=== PATIENT | male | born 1985 | race Caucasian/White ===

== ENCOUNTER 2018-10-09 11:40 | Emergency (ER) | payer OTHER ==
[2018-10-09 11:47] VITALS: TEMP 98.2; BMI 29.5
[2018-10-09] MEDS ORDERED: SODIUM CHLORIDE 1,000 ML IV STA (12:48)
--- NOTE | 2018-10-09 13:20 | PDOC ---
*Physical Exam - Vital Signs Last Vital Signs Temp Pulse Resp BP Pulse Ox 98.2 F 111 H 18 156/114 H 99 10/09/18 11:42 10/09/18 11:42 10/09/18 11:42 10/09/18 11:42 10/09/18 11:42 Medical Decision Making - Medical Decision Making 10/09/18 13:20 Pt seen by Midlevel Provider under my direct supervision Pt interviewed and examined Ancillary studies reviewed I agree with plan as outlined by Midlevel Provider
--- NOTE | 2018-10-09 13:25 | PDOC ---
History of Present Illness - General Chief Complaint: Pain, Acute Stated Complaint: LOWER BACK Time Seen by Provider: 10/09/18 12:42 History Source: Patient Exam Limitations: No Limitations - History of Present Illness Travel History: No Initial Comments: 10/09/18 13:50 33-year-old male presents to the emergency department with complaints of right flank pain which he describes cramping sharp pain since yesterday associated with chills. 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 Patient states drinks lots of water secondary to the above. Timing/Duration: reports: constant Quality: reports: mild, cramping Abdominal Pain Onset Location: reports: flank Pain Radiation: reports: no radiation Activities at Onset: reports: none Aggravating Factors: improves with: None Alleviating Factors: improves with: None Past History - Travel Traveled outside of the country in the last 30 days: No - Past Medical History Allergies/Adverse Reactions: Allergies Allergy/AdvReac Type Severity Reaction Status Date / Time No Known Allergies Allergy Verified 10/09/18 11:42 COPD: No Psychiatric Problems: Yes (BIPOLAR) - Immunization History Immunization Up to Date: No - Suicide/Smoking/Psychosocial Hx Smoking Status: No Smoking History: Never smoked Have you smoked in the past 12 months: No Number of Cigarettes Smoked Daily: 0 Hx Alcohol Use: No Drug/Substance Use Hx: No Substance Use Type: None Patient Lives Alone: No Review of Systems - Review of Systems Able to Perform ROS?: Yes Constitutional: Yes: Chills HEENTM: No: Symptoms Reported Respiratory: No: Symptoms reported Cardiac (ROS): No: Symptoms Reported ABD/GI: Yes: Abdominal cramping : Yes: Flank Pain. No: Dysuria, Discharge, Frequency, Urgency Integumentary: No: Symptoms Reported Neurological: No: Symptoms reported *Physical Exam - Vital Signs Last Vital Signs Temp Pulse Resp BP Pulse Ox 98.2 F 111 H 18 156/114 H 99 10/09/18 11:42 10/09/18 11:42 10/09/18 11:42 10/09/18 11:42 10/09/18 11:42 - Physical Exam General Appearance: Yes: Nourished, Appropriately Dressed. No: Apparent Distress HEENT: negative: Pale Conjunctivae Neck: positive: Normal Thyroid, Supple Respiratory/Chest: positive: Lungs Clear, Normal Breath Sounds. negative: Respiratory Distress, Accessory Muscle Use Cardiovascular: positive: Regular Rhythm, Tachycardia. negative: Murmur Gastrointestinal/Abdominal: positive: Soft, Tenderness (rt flank) Musculoskeletal: negative: CVA Tenderness (R) Extremity: negative: Pedal Edema Integumentary: positive: Normal Color, Warm, Moist Neurologic: positive: Motor Strength 5/5 (ambulatory) Moderate Sedation - Procedure Monitoring Vital Signs: Procedure Monitoring Vital Signs Temperature 98.2 F 10/09/18 11:42 Pulse Rate 111 H 10/09/18 11:42 Respiratory Rate 18 10/09/18 11:42 Blood Pressure 156/114 H 10/09/18 11:42 O2 Sat by Pulse Oximetry (%) 99 10/09/18 11:42 ED Treatment Course - LABORATORY CBC & Chemistry Diagram: 10/09/18 12:55 10/09/18 13:10 Medical Decision Making - Medical Decision Making 10/09/18 13:56 Chief complaint: Right flank pain with chills. History of right kidney only Exam: Right flank pain no CVA pain no right upper quadrant pain Plan labs, lactic acid, rectal temperature, lipase and urine test 10/09/18 16:43 Laboratory Tests 10/09/18 13:00 Ur Specific [place] 1.003 L Urine Protein Negative Urine Glucose (UA) Negative Urine Ketones Negative Urine Blood 1+ H Urine Nitrite Negative Urine Bilirubin Negative Urine Urobilinogen Negative Ur Leukocyte Esterase Negative Urine WBC (Auto) None Urine RBC (Auto) None CT of the abdomen shows a 2.7 mm renal calculus nonobstructing in the right renal pole. Patient be discharged home with Flomax with recommendations to strain his urine along with referral to a urologist *DC/Admit/Observation/Transfer Diagnosis at time of Disposition: Renal calculi - Discharge Dispostion Disposition: HOME Condition at time of disposition: Good - Referrals Referrals: Savage Duarte MD., MD [Staff Physician] - - Patient Instructions Printed Discharge Instructions: DI for Kidney Stones Additional Instructions: Drink at least 2 L of water daily basis. Please take Flomax as prescribed increased urine flow. Please strain your urine and follow up with referred urologist. May take Tylenol Motrin for discomfort and if symptoms worsen prior to your follow-up and despite medication please return to the ED immediately - Post Discharge Activity
[2018-10-09 13:33] LABS: BASO % 0.4 % (0-2.0); EOS % 1.7 % (0-4.5); HEMATOCRIT 48.7 % (35.4-49); HEMOGLOBIN 16.3 GM/dL (11.7-16.9); LYMPH % 24.5 % (8-40); MCH 27.6 pg (25.7-33.7); MCHC 33.5 g/dl (32.0-35.9); MEAN CELL VOLUME 82.3 fl (80-96); MEAN PLT VOLUME 8.5 fl (7.5-11.1); NEUT % 65.4 % (42.8-82.8); PLATELET COUNT 303 K/MM3 (134-434); RBC 5.92 M/mm3 (4.00-5.60); RDW 13.4 % (11.9-15.9); WHITE BLOOD COUNT 7.3 K/mm3 (4.0-10.0)
[2018-10-09 13:35] LABS: URINE APPEARANCE CLEAR; URINE BILIRUBIN NEGATIVE (<2.0 mg/dL); URINE COLOR COLORLESS; URINE GLUCOSE (UA) NEGATIVE (NEGATIVE); URINE KETONE NEGATIVE (NEGATIVE); URINE LEUK ESTERASE NEGATIVE (NEGATIVE); URINE NITRITE NEGATIVE (NEGATIVE); URINE PROTEIN NEGATIVE (NEGATIVE); URINE UROBILINOGEN NEGATIVE mg/dL (0.2-1.0)
[2018-10-09 13:53] LABS: ALBUMIN 4.4 g/dl (3.4-5.0); ALK PHOS 71 U/L (45-117); ANION GAP 6 MMOL/L (8-16); BILIRUBIN,TOTAL 0.6 mg/dL (0.2-1); BLOOD UREA NITROGEN 17 mg/dL (7-18); CALCIUM 9.3 mg/dL (8.5-10.1); CHLORIDE 105 mmol/L (98-107); CO2 26 mmol/L (21-32); CREATININE 1.2 mg/dL (0.55-1.3); GLUCOSE,RANDOM 101 mg/dL (74-106); LIPASE 113 U/L (73-393); POTASSIUM 4.4 mmol/L (3.5-5.1); SGOT/AST 13 U/L (15-37); SGPT/ALT 28 U/L (13-61); SODIUM 138 mmol/L (136-145)
[2018-10-09 17:30] VITALS: BP 162/89; PULSE 90
== END 2018-10-09 17:32 | disposition home or self-care (01) ==
LOC: JER 11:40
PROC: 3E0337Z Introduction of Electrolytic and Water Balance Substance into Peripheral Vein, Percutaneous Approach (ICD-10-PCS; principal; 2018-10-09)
DX: N20.0 Calculus of kidney (principal); Q60.0 Renal agenesis, unilateral
CPT/HCPCS: 36415; 74176; 80053; 81003; 81015; 83605; 83690; 85025; 87086; 96360; 99282-25; J7030